=== PATIENT | male | born 1965 | race Caucasian/White ===

== ENCOUNTER 2019-02-13 05:46 | Emergency (ER) | payer MEDICAID ==
[~2019-02-13] VITALS: Ht 172.7 cm; Wt 102.1 kg
[2019-02-13 05:46] VITALS: BP_SYST 144
--- NOTE | 2019-02-13 05:50 | NUR ---
Patient to ER bed 1 to gown for evaluation. Side rails up.
--- NOTE | 2019-02-13 05:53 | NUR ---
Dr. Sepulveda bedside for Pt eval
--- NOTE | 2019-02-13 05:55 | NUR ---
Pt BIB family to ED C/O left-sided chest pain radiating to proximal left arm started 2 hours prior to arrival woke up with pain positive radiation nothing makes better moderate in severity never had this pain before described as a pain positive nausea no vomiting no sweating no cough no fevers no shortness of breath no trauma no exercise no heavy lifting. No other injuries and or complaints noted VSS no s/s of acute distress. Resting on gurney rails up
[2019-02-13] MEDS ORDERED: MORPHINE 2 MG/ML INJ. SYRINGE IVP ONE (06:00)
[2019-02-13] MEDS ORDERED: ONDANSETRON HCL 4 MG/2 ML VIAL IVP ONE (06:00)
[2019-02-13] MEDS ORDERED: ASPIRIN 325 MG TABLET PO ONE (06:00)
[2019-02-13 06:33] LABS: BASOPHILS # (AUTO) 0.1 K/uL (0.0-0.2); BASOPHILS % (AUTO) 0.6 % (0.0-2.0); EOSINOPHILS # (AUTO) 0.2 K/uL (0.0-0.4); EOSINOPHILS % (AUTO) 2.6 % (0.0-4.0); HEMATOCRIT 47.6 % (36-54); HEMOGLOBIN 16.3 g/dL (14.0-18.0); LYMPHOCYTES # (AUTO) 2.2 K/uL (1.0-5.5); LYMPHOCYTES % (AUTO) 25.4 % (20.5-51.5); MEAN CORPUSCULAR HEMOGLOBIN 30 pg (27-31); MEAN CORPUSCULAR HGB CONC 34 % (32-36); MEAN CORPUSCULAR VOLUME 89 fL (79.0-98.0); MONOCYTES # (AUTO) 0.5 K/uL (0.0-1.0); MONOCYTES % (AUTO) 6.4 % (1.7-9.3); NEUTROPHILS # (AUTO) 5.6 K/uL (1.8-7.7); PLATELET COUNT (AUTO) 321 K/uL (130-430); RED BLOOD CELL COUNT(AUTO) 5.36 MIL/uL (4.2-6.2); RED CELL DISTRIBUTION WIDTH 13.6 % (9.0-15.0); WHITE BLOOD COUNT (AUTO) 8.5 K/uL (4.8-10.8)
[2019-02-13 06:47] LABS: CALCIUM 9.6 mg/dL (8.4-11.0); CREATININE 1.08 mg/dL (0.55-1.30); INR 1.1 (0.80-1.20); POTASSIUM 3.8 mmol/L (3.5-5.1); PROTHROMBIN TIME 11.4 SECS (9.5-12.5)
[2019-02-13 07:00] LABS: TOTAL BILIRUBIN 0.7 mg/dL (0.0-1.0)
[2019-02-13 07:01] LABS: ALBUMIN 3.7 g/dL (3.4-4.8)
--- NOTE | 2019-02-13 07:05 | NUR ---
Report received from MAYRA Perez.
[2019-02-13 07:14] VITALS: BP_SYST 135
--- NOTE | 2019-02-13 07:23 | NUR ---
AMA Patient aware of requested admission for CP r/o ACS. Patients insurance to be called for possible transfer. At this time, patient requesting to leave AMA. Dr. Sepulveda called to bedside. Patient agreeable to AMA instructed regarding possible risks and consequences up to and disability as explained by Dr. Sepulveda. Patient instructions given to patient with prescriptions for [place] 5-325 and Zofran. Patients IV removed, no active bleeding. Patient states no pain present at this time, feels like it is "just heartburn, and he needs to change his diet." Patient concerned regarding blood pressure reading of 135/90, and encouraged to take his home medications.
== END 2019-02-13 07:23 | disposition left against medical advice (07) ==
LOC: SED 05:46
DX: R07.89 Other chest pain (principal); R11.0 Nausea
CPT/HCPCS: 36415; 71045; 80053; 84484; 85025; 85379; 85610; 85730; 93005; 96374; 96375; 99284; J2270; J2405